=== PATIENT | female | born 1990 | race Caucasian/White ===

== ENCOUNTER 2017-02-11 19:43 | Outpatient (CLI) | payer OTHER ==
[~2017-02-11] VITALS: Ht 162.6 cm; Wt 90.7 kg
[2017-02-11 20:19] VITALS: BP 109/64; PULSE 90; RESP 18
[2017-02-11 20:22] LABS: ADD UMIC YES; URINE BILIRUBIN (Dip) NEGATIVE (NEGATIVE); URINE BLOOD (Dip) NEGATIVE (NEGATIVE); URINE COLOR LT. YELLOW (YELLOW); URINE GLUCOSE (Dip) NEGATIVE (NEGATIVE); URINE KETONES (Dip) NEGATIVE (NEGATIVE); URINE LEUKOCYTE ESTERASE (Dip) 3+ (NEGATIVE); URINE NITRITE (Dip) NEGATIVE (NEGATIVE); URINE TOTAL PROTEIN (Dip) NEGATIVE (NEGATIVE); URINE UROBILINOGEN (Dip) 0.2 E.U./dL (0.1-1.0)
[2017-02-11] MEDS ORDERED: PYRI60TA PO (20:27)
[2017-02-11] MEDS ORDERED: PRENAT PO (20:27)
[2017-02-11 20:46] LABS: BACTERIA,URINE FEW; SQUAMOUS EPITHELIAL CELL,UR MODERATE; URINE RBCS 0-2 /HPF (0)
--- NOTE | 2017-02-11 21:39 | RADRPT ---
PROCEDURE: US OB. CLINICAL INDICATION: Clinical concern for spontaneous rupture of membranes TECHNIQUE: Pelvic ultrasound performed for biophysical profile. COMPARISON: 01/23/2017 FINDINGS: Single intrauterine gestation present with heart rate at 132 beats per minute. Presentation is ceph alic. Placenta is anterior, grade II. Biophysical profile score is 8/8 (breathing=2, movement=2, t one =2, fluid volume=2). Amniotic fluid volume is within normal limits, with RENETTA = 11.9 cm. RPTAT:HJJR IMPRESSION: 1. Biophysical profile score 8/8. 2. Amniotic fluid index is normal estimated at 11.9 cm, previously 15.3 cm on the study of 7. Physician Mulu Date Time Electronically viewed and signed by Physician Mulu on 02/11/2017 21:38 /
--- NOTE | 2017-02-11 22:31 | TRIAGE ---
OB Triage Datetime Report Generated by CPN: 02/11/2017 22:31 Datetime: 02/11/2017 22:25 Stage of : OB Triage Datetime: 02/11/2017 21:41 Monitor Mode: External US FHR Baseline Changes: No Baseline Change Variability: Moderate 6-25 bpm Accelerations: 15X15 Comments: EFM removed Datetime: 02/11/2017 20:50 Labor Evaluation Frequency: 2-8 Monitor Mode: External Duration (sec)2399: 30-40sec Quality: Mild Pattern: Normal: <= 5 Contractions in 10 Minutes Resting Tone [place]: Relaxed Heart Rate FHR Baseline Rate: 130 Monitor Mode: External US FHR Baseline Changes: No Baseline Change Variability: Moderate 6-25 bpm Accelerations: 15X15 Decelerations: None Category: Category I Pain Assessment Pain Scale: 0 Pain Presence: None/Denies Pain Type: N/A Vaginal Exam Dilatation (cms): 0.5 Effacement (%): 50 Station: -3 Exam By: E Nikolay Amniotic Fluid Amount: None Vaginal Bleeding: None Pool: Negative Nitrazine: Negative Cervix, Consistency: Soft Cervix, Position: Posterior Datetime: 02/11/2017 20:00 Stage of : OB Triage Maternal Assessment Level of Consciousness: Fully Conscious Headache: Denies Blurred Vision: No Respiratory Effort: Unlabored Nausea/Vomiting: Denies RUQ Epigastric Pain: Denies Facial Edema: None Labor Evaluation Frequency: placed Monitor Mode: External Resting Tone [place]: Relaxed Monitor Mode: External US Comments: [id number] Datetime: 02/11/2017 19:45 Time of Arrival: 02/11/2017 19:38 EGA: 38.2 Arrived By: Ambulatory Arrived From: Home Chief Complaint: w/ c/o gush fluid at 1550 and first cramo at 1930. Denies hx problems this p regnancy. States hx myesthenia gravis since 10yrs old Movement: Present Contractions: Occasional Time Contractions Began: 02/11/2017 19:30 Rupture of Membranes: Unsure Vaginal Bleeding: None Vaginal Discharge: Present Recent Sexual Intercouse: Yes Abdominal Trauma: Not Applicable Patient Complaints: Cramping Time Provider Notified: 02/11/2017 20:55 Provider Notified: Dr Courtney Initial Plan: EFM, SVBrina, BPP, ROM+
--- NOTE | 2017-02-11 22:48 | QN ---
Documentation Comment OB Triage- Laborist Pt is a 26yo at 38+2 presenting with c/o gush of fluid this afternoon. Pt reports normal FM and denies VB. Pt does reports feeling an abdominal cramp at 1930 which resolved shortly thereafter. VS 98.2 109/64 90 18 FHT: Baseline 120s, mod tasha, +accels, no decels [place]: irregular UCs Gen: well appearing, NAD SVE: FT/50/-3 PROCEDURE: US OB. CLINICAL INDICATION: Clinical concern for spontaneous rupture of membranes TECHNIQUE: Pelvic ultrasound performed for biophysical profile. COMPARISON: 01/23/2017 FINDINGS: Single intrauterine gestation present with heart rate at 132 beats per minute. Presentation is cephalic. Placenta is anterior, grade II. Biophysical profile score is 8/8 (breathing=2, movement=2, tone =2, fluid volume=2). Amniotic fluid volume is within normal limits, with RENETTA = 11.9 cm. RPTAT:NOLANR IMPRESSION: 1. Biophysical profile score 8/8. 2. Amniotic fluid index is normal estimated at 11.9 cm, previously 15.3 cm on the study of 01/23/2017. Assessment 1)No e/o ROM 2)Reassuring FWB w/reactive NST 3)No e/o labor Plan Given negative ROM plus and nitrazine in the setting of normal RENETTA, reassurance provided to pt that ROM is unlikely at this time. Pt given strict return precautions for continued feeling of leaking/ROM, labor and FKC. F/up with Dr. Courtney as scheduled on 02/14/17. Questions answered to patient's satisfaction. UMU VIZCARRA MD February 11, 2017 22:48
== END 2017-02-11 22:25 | disposition home or self-care (01) ==
LOC: OBT 19:43 → L-D 19:43 → OBT 22:25
PROVIDERS: ATTEND Obstetrics & Gynecology
DX: O26.893 Other specified pregnancy related conditions, third trimester (principal); R10.9 Unspecified abdominal pain; Z3A.38 38 weeks gestation of pregnancy
CPT/HCPCS: 76818; 81001; 81003; 84112; G0463

== ENCOUNTER 2017-02-23 08:00 | Inpatient (IN) | payer OTHER ==
[~2017-02-23] VITALS: Ht 162.6 cm; Wt 92.7 kg
[~2017-02-23 08:00] MED LIST: PRENAT PO; PYRI60TA PO
[2017-02-23 09:29] VITALS: Ht 162.6 cm; Wt 92.7 kg
[2017-02-23 09:30] VITALS: BP 111/64; PULSE 95; RESP 18
[2017-02-23 09:47] LABS: ADD SCAN DIFF NO
[2017-02-23 09:49] LABS: BASOPHILS % 0.3 % (0.0-2.0); EOSINOPHILS % 0.3 % (0.0-7.0); HEMATOCRIT 28.3 % (37.0-47.0); HEMOGLOBIN 8.8 g/dl (12.0-16.0); LYMPHOCYTES # 1.4 10^3/ul (0.8-2.9); LYMPHOCYTES % 21.4 % (15.0-51.0); MEAN CORPUSCULAR HEMOGLOBIN 25.9 pg (29.0-33.0); MEAN CORPUSCULAR HGB CONC 31.1 g/dl (32.0-37.0); MEAN CORPUSCULAR VOLUME 83.2 fl (82.0-101.0); MEAN PLATELET VOLUME 10.2 fl (7.4-10.4); MONOCYTE # 0.4 10^3/ul (0.3-0.9); MONOCYTES % 6.6 % (0.0-11.0); NEUTROPHIL # 4.6 10^3/ul (1.6-7.5); NEUTROPHILS % 70.3 % (39.0-77.0); NUCLEATED RED BLOOD CELLS% 0.5 /100WBC (0.0-0.0); PLATELET COUNT 209 10^3/UL (140-415); RED CELL DISTRIBUTION WIDTH 15.7 % (11.5-14.5); WHITE BLOOD COUNT 6.5 10^3/ul (4.8-10.8)
[2017-02-23 09:59] LABS: INR 1.01; PROTIME 13.3 Sec (12.2-14.2)
[2017-02-23 10:00] LABS: PARTIAL THROMBOPLASTIN TIME 26.2 Sec (25.0-35.0)
[2017-02-23] MEDS ORDERED: AMPICILLIN 2 GM/NS (PMX) 100 ML IV ONE (10:00)
[2017-02-23] MEDS ORDERED: MISOPROSTOL 200 MCG TAB PR PRN (10:00)
[2017-02-23] MEDS ORDERED: LIDOCAINE 1% (MPF) 30 ML INJ INJ PRN (10:00)
[2017-02-23] MEDS ORDERED: IBUPROFEN 600 MG TAB PO PRN (10:00)
[2017-02-23] MEDS ORDERED: LACTATED RINGER'S 1,000 ML IV PRN (10:00)
[2017-02-23] MEDS ORDERED: METHYLERGONOVINE 0.2 MG INJ IM PRN (10:00)
[2017-02-23] MEDS ORDERED: OXYTOCIN 30 UNITS/LR 500 ML IV PRN (10:00)
[2017-02-23] MEDS ORDERED: BUTORPHANOL 2 MG INJ IV PRN (10:00)
[2017-02-23] MEDS ORDERED: CARBOPROST 250 MCG INJ IM PRN (10:00)
[2017-02-23] MEDS ORDERED: OXYTOCIN 30 UNITS/LR 500 ML IV SCH (10:30)
[2017-02-23] MEDS: LACTATED RINGER'S 1,000 ML IV SCH ×3 (10:47→21:38)
[2017-02-23] MEDS: AMPICILLIN 1 GM/NS (PMX) 50 ML IV SCH ×3 (13:53→21:37)
[2017-02-23] MEDS ORDERED: FENTAnyl 2MCG/ML-ROPIV 0.2% 100 ML ONE (20:06)
[2017-02-23] MEDS ORDERED: FENTAnyl 2MCG/ML-ROPIV 0.2% 100 ML BAG EPI SCH (21:00)
[2017-02-23] MEDS ORDERED: HYDROmorphONE 1 MG/ML SYG IV PRN ×2 (21:00)
[2017-02-23] MEDS ORDERED: PROCHLORPERAZINE 10 MG INJ IV PRN (21:00)
[2017-02-23] MEDS ORDERED: NALOXONE (0.4 MG/ML) INJ IV PRN (21:00)
[2017-02-23] MEDS ORDERED: KETOROLAC 30 MG INJ IV PRN (21:00)
[2017-02-23] MEDS ORDERED: ONDANSETRON 4 MG INJ IV PRN (21:00)
[2017-02-23] MEDS ORDERED: DIPHENHYDRAMINE 50 MG INJ IV PRN (21:00)
[2017-02-24] MEDS: LACTATED RINGER'S 1,000 ML IV SCH (01:10)
[2017-02-24] MEDS: AMPICILLIN 1 GM/NS (PMX) 50 ML IV SCH (01:44)
[2017-02-24] MEDS: OXYTOCIN 30 UNITS/LR 500 ML IV SCH ×2 (04:25→05:10)
[2017-02-24] MEDS ORDERED: LACTATED RINGER'S 1,000 ML IV* SCH ×2 (04:44→07:33)
--- NOTE | 2017-02-24 04:59 | HP ---
Date/Time of Note Date/Time of Note DATE: 02/24/17 TIME: 04:51 OB - History Hx of Present Free Text/Dictation 26y.o admitted for induction of labor for postdate known to have myasthenia gravis on pyridostigmine bromide 120mg daily prn , diagnosed at age of 10 pitocin was chosen to be used for induction antepartum test biwkly since 34 week GBS pos Estimated Due Date: February 23, 2017 : 2 Para: 1 Spontaneous : 0 Therapeutic : 0 Care: Good Care Ultrasounds: Normal mid trimester US Obstetrical Complications: None Medical Complications: Other (myasthenia gravis) Past Family/Social History * Past Medical, Surgical, Family and Obstetric Histories reviewed from chart. Blood Type: B+ Rubella: immune RPR/VDRL: Positive GBS Status: Negative HBsAG: Negative OB Admission Exam Vital Signs Vital Signs Vital Signs Date Time Temp Pulse Resp B/P Pulse Ox O2 Delivery O2 Flow Rate FiO2 02/23/17 09:30 98.9 95 18 111/64 Room Air Physical Exam HEENT: WNL Heart: Rhythm Normal Lungs: Clear, Equal Abdomen: WNL Extremities: Normal Reflexes: Normal Cervical Dilatation: 2cm Effacement: 50% Station: -3 Membranes: Intact Amniotic Fluid: Unevaluable Heart Rate: 140's Accelerations: Accelerations Present Decelerations: No Decelerations Varibility: Moderate Contractions on Admission: >10 Minutes Apart Intensity: Mild Last 72 hours Lab Results CBC & BMP 02/23/17 09:15 OB Assessment/Plan Reason for admission: induction of labor Other Assessment: IUP 40w myasthenia gravis Plan: Induction Induction Method: per Pitocin Protocol BERTHA COFFMAN MD February 24, 2017 04:59
[2017-02-24] MEDS ORDERED: METHYLERGONOVINE 0.2 MG INJ IM PRN ×2 (05:00→08:00)
[2017-02-24] MEDS ORDERED: MISOPROSTOL 200 MCG TAB PR PRN ×2 (05:00→08:00)
[2017-02-24] MEDS ORDERED: OXYTOCIN 30 UNITS/LR 500 ML IV PRN ×2 (05:00→08:00)
[2017-02-24] MEDS ORDERED: CARBOPROST 250 MCG INJ IM PRN ×2 (05:00→08:00)
--- NOTE | 2017-02-24 05:01 | LDN ---
Date/Time of Note Date/Time of Note DATE: 02/24/17 TIME: 04:59 Delivery Summary normal vaginal delivery Weeks of Gestation 40w1d Placenta Delivered: Spontaneously Meconium: none Episiotomy: No Perineal laceration: 1 Laceration repair: 000ch gut Anesthesia type: Epidural Sponge & Needle done & correct: Yes All needle counts correct: Yes Any foreign bodies felt in the: No Problems: Delivery Information Sex Infant Sex: female Apgars 1 Minute: 9 5 Minute: 9 10 Minute: 9 Suctioning Nose & mouth suctioned at clotilde: Yes Delee suction performed: No Umbilical Cord Umbilical cord with: 3 Vessels Cord presentations: no nuchal cord Cord Blood was obtained: Yes Mother & Baby Disposition Disposition Mom & Baby to Maternity; Good: Yes Mom transferred to: Other () Baby to NICU: No BERTHA COFFMAN MD February 24, 2017 05:01
[2017-02-24 06:05] VITALS: BP 114/58; PULSE 87; RESP 18
[2017-02-24 06:35] VITALS: BP 110/59; PULSE 75; RESP 19
[2017-02-24 08:00] VITALS: BP 116/65; PULSE 76; RESP 18
[2017-02-24] MEDS ORDERED: ACETAMINOPHEN 325 MG TAB PO PRN (08:00)
[2017-02-24] MEDS ORDERED: WITCH HAZEL/GLYCERIN PAD PR PRN (08:00)
[2017-02-24] MEDS ORDERED: OXYCODONE/ASPIRIN (4.88/325) TAB PO PRN (08:00)
[2017-02-24] MEDS ORDERED: BENZOCAINE 20% 56 ML SPRAY TOP PRN (08:00)
[2017-02-24] MEDS ORDERED: ACETAMINOPHEN/CODEINE #3 TAB PO PRN (08:00)
[2017-02-24] MEDS ORDERED: LANOLIN 7 GM TUBE TOP PRN (08:00)
[2017-02-24] MEDS ORDERED: PYRIDOSTIGMINE 60 MG TAB PO SCH (09:00)
[2017-02-24] MEDS: SENNA/DOCUSATE NA (8.6MG/50MG) TAB PO SCH ×2 (09:02→21:37)
[2017-02-24] MEDS: PYRIDOSTIGMINE 60 MG TAB PO SCH (09:02)
[2017-02-24] MEDS: OXYCODONE/ASPIRIN (4.88/325) TAB PO PRN (09:06)
[2017-02-24] MEDS: IBUPROFEN 600 MG TAB PO SCH ×2 (11:45→17:24)
[2017-02-24 12:00] VITALS: BP 98/57; PULSE 57
[2017-02-24 16:00] VITALS: BP 98/64; PULSE 68; RESP 19
[2017-02-24 20:00] VITALS: BP 113/69; RESP 18
[2017-02-25 04:15] VITALS: BP 107/66; PULSE 70; RESP 18
[2017-02-25] MEDS: IBUPROFEN 600 MG TAB PO SCH ×5 (06:00→23:56)
[2017-02-25 08:30] VITALS: BP 105/62; PULSE 72; RESP 16
[2017-02-25 08:44] LABS: ADD SCAN DIFF NO
[2017-02-25 09:22] LABS: BASOPHILS % 0.3 % (0.0-2.0); EOSINOPHILS % 0.3 % (0.0-7.0); HEMATOCRIT 29.6 % (37.0-47.0); HEMOGLOBIN 8.8 g/dl (12.0-16.0); LYMPHOCYTES # 1.8 10^3/ul (0.8-2.9); LYMPHOCYTES % 20.3 % (15.0-51.0); MEAN CORPUSCULAR HEMOGLOBIN 25.1 pg (29.0-33.0); MEAN CORPUSCULAR HGB CONC 29.7 g/dl (32.0-37.0); MEAN CORPUSCULAR VOLUME 84.3 fl (82.0-101.0); MEAN PLATELET VOLUME 9.7 fl (7.4-10.4); MONOCYTE # 0.6 10^3/ul (0.3-0.9); MONOCYTES % 6.6 % (0.0-11.0); NEUTROPHIL # 6.5 10^3/ul (1.6-7.5); NEUTROPHILS % 71.7 % (39.0-77.0); PLATELET COUNT 193 10^3/UL (140-415); RED BLOOD COUNT 3.51 10^6/ul (4.20-5.40); RED CELL DISTRIBUTION WIDTH 16.1 % (11.5-14.5); WHITE BLOOD COUNT 9.1 10^3/ul (4.8-10.8)
[2017-02-25] MEDS: SENNA/DOCUSATE NA (8.6MG/50MG) TAB PO SCH ×2 (09:28→21:42)
[2017-02-25] MEDS: PYRIDOSTIGMINE 60 MG TAB PO SCH (09:28)
[2017-02-25 15:45] VITALS: BP 109/81; PULSE 73; RESP 16
--- NOTE | 2017-02-25 18:13 | PN ---
Date/Time of Note Date/Time of Note DATE: 02/25/17 TIME: 18:10 OB Subjective Subjective Subjective no c/o OB Objective Objective Objective vss afebile fundus firm lochia min ext neg for tenderness OB Assessment/Plan Other Assessment: stable s/p vaginal delivery Other plan: d/s home in am BERTHA COFFMAN MD February 25, 2017 18:13
[2017-02-25 19:40] VITALS: BP 112/63; PULSE 74; RESP 18
[2017-02-26 03:40] VITALS: BP 118/83; PULSE 69; RESP 19
[2017-02-26] MEDS: IBUPROFEN 600 MG TAB PO SCH (05:41)
[2017-02-26 08:00] VITALS: BP 97/49; PULSE 69; RESP 16
[2017-02-26 08:15] VITALS: BP 106/57; PULSE 80; RESP 19
[2017-02-26] MEDS ORDERED: DIPHTH/TET/ACEL PERTUSS (ADULT) 0.5 ML VIAL IM* ONE (09:00)
[2017-02-26] MEDS: OXYCODONE/ASPIRIN (4.88/325) TAB PO PRN (09:38)
[2017-02-26] MEDS: SENNA/DOCUSATE NA (8.6MG/50MG) TAB PO SCH (09:38)
[2017-02-26] MEDS: PYRIDOSTIGMINE 60 MG TAB PO SCH (09:38)
--- NOTE | 2017-02-26 10:37 | PD.PPDC ---
HEALTHCARE ADMINISTRATIVE ASSISTANT Discharge Instruction Diagnosis Final Diagnosis: s/p normal delivery Condition Patient Condition: Good Activity/Restrictions Activity: May Shower Restrictions: No Lifting No Sexual Activity Nothing in the Vagina No [place] No Tampons, douche Follow-up Follow-up with Physician: 6, Week/Weeks Return to clinic for READING AIDE Instructions: Fever greater than 101 Chills Worsening abdominal pain Excessive Vaginal Bleeding More than 2 pads per hour Unable to tolerate diet OB Instructions: Breast Tenderness Depression Blurried Vision Headache BERTHA COFFMAN MD February 26, 2017 10:37
--- NOTE | 2017-02-26 10:39 | DS ---
Date/Time of Note Date/Time of Note DATE: 02/26/17 TIME: 10:39 Obstetrical Discharge Record Final Diagnosis Final Diagnosis: Term delivered Vaginal Delivery Obstetrical Delivery: Spontaneous Complications Induction: Yes Condition on Discharge Physical Assessment Last Vitals: vss afebrile Voiding: Yes Bowel Movement: Yes Breast: Soft, non-tender Fundus: Firm Calf Tenderness: No Patient Condition: Stable BERTHA COFFMAN MD February 26, 2017 10:39
== END 2017-02-26 14:30 | disposition home or self-care (01) | DRG 774 ==
LOC: L-D 08:53 → PP1 02-24 06:08
PROVIDERS: ADMIT Obstetrics & Gynecology; ATTEND Obstetrics & Gynecology
PROC: 3E033VJ Introduction of Other Hormone into Peripheral Vein, Percutaneous Approach (ICD-10-PCS; 2017-02-23)
PROC: 10E0XZZ Delivery of Products of Conception, External Approach (ICD-10-PCS; principal; 2017-02-24)
PROC: 0HQ9XZZ Repair Perineum Skin, External Approach (ICD-10-PCS; 2017-02-24)
DX: O48.0 Post-term pregnancy (principal); O99.42 Diseases of the circulatory system complicating childbirth; O99.354 Diseases of the nervous system complicating childbirth; G70.00 Myasthenia gravis without (acute) exacerbation; O70.0 First degree perineal laceration during delivery; Z3A.40 40 weeks gestation of pregnancy; Z37.0 Single live birth
CPT/HCPCS: 62319; 85025; 85610; 85730; 86592; 86900; 86901; 87340; 90715; J0290; J2590; J3010; J7120

== ENCOUNTER 2017-07-08 01:37 | Emergency (ER) | END 2017-07-08 03:13 | disposition home or self-care (01) | DX: Z76.0 Encounter for issue of repeat prescription (principal); G70.00 Myasthenia gravis without (acute) exacerbation | CPT/HCPCS: 36415; 80053; 81001; 84703; 85025; Z7502 ==

== ENCOUNTER 2017-07-09 14:25 | Inpatient (IN) | payer OTHER ==
[2017-07-09] VITALS (9 sets, daily range): BP systolic 92–108; BP diastolic 61–79; PULSE 55–65; RESP 16–20
[~2017-07-09] VITALS: Ht 162.6 cm; Wt 75.0 kg
[~2017-07-09 14:25] MED LIST changes: +PYRI60TA9 PO
--- NOTE | 2017-07-09 15:07 | ERA ---
ER Documentation Chief Complaint Date/Time DATE: 07/09/17 TIME: 15:04 Chief Complaint Medication administion HPI This is a 27-year-old female with a history of myasthenia gravis who was seen in the ER here Monday night and discharged in stable condition. The patient says she got worse and was seen in admission hospital the day. She says her myasthenia was getting worse she was seen at [facility] and was treated there with her usual myasthenia medications. She says she is doing much better now. She says her symptoms were eye drooping left more than right generalized fatigue and some difficulty swallowing when eating food. She has no respiratory compromise no difficulty breathing no cough no fever no headache no vomiting or diarrhea. Patient was going to be admitted there but was transferred here for insurance reasons. Patient was accepted by Dr. Jovan ARIAS All systems reviewed and are negative except as per history of present illness. Medications Home Meds Active Scripts Pyridostigmine [place]* (Pyridostigmine [place]*) 60 Mg Tablet, 60 MG PO Q4, # 100 TAB Prov:CATIE MART PA-C 07/08/17 Reported Medications Pyridostigmine [place]* (Mestinon*) 60 Mg Tablet, 120 MG PO DAILY, TAB 02/11/17 Multivit/Min/Fol Ac/Iron/Pren* ( S*) 1 Tab Tab, 1 TAB PO DAILY, TAB 02/11/17 Allergies Allergies: Coded Allergies: No Known Allergy (Unverified , 02/11/17) PMhx/Soc History of Surgery: No Hx Neurological Disorder: Yes (Myasthenia gravis) Hx Alcohol Use: No Hx Substance Use: No Hx Tobacco Use: No Smoking Status: Never smoker FmHx Family History: No coronary disease Physical Exam Vitals Vital Signs Date Time Temp Pulse Resp B/P Pulse Ox O2 Delivery O2 Flow Rate FiO2 07/09/17 14:44 98.1 59 18 120/90 99 Physical Exam Const: Well-developed, well-nourished Head: Atraumatic, normocephalic Eyes: Normal Conjunctiva, PERRLA, EOMI, normal sclera, no nystagmus ENT: Normal External Ears, Nose and Mouth, moist mucus membranes, slight left eye droop. Neck: Full range of motion. No meningismus, no lymphadenopathy. Resp: Clear to auscultation bilaterally, no wheezing, rhonchi, rales Cardio: Regular rate and rhythm, no murmurs, S1 S2 present Abd: Soft, non tender x 4, non distended. Normal bowel sounds, no guarding or rebound, no pulsitile abdominal masses or bruits Skin: No petechiae or rashes, no ecchymosis , no maculopapular rash Back: No midline or flank tenderness Ext: No cyanosis, or edema, FROM x 4, normal inspection, neurovascularly intact x 4 Neur: Awake and alert, STR 5/5 x 4, sensation intact x 4, no focal findings, cerebellum intact Psych: Normal Mood and Affect Procedures/MDM Patient had blood work sent over from [facility] do not need any at this time. I notified Dr. Aldana of the patient's arrival. We will admit her to telemetry Departure Diagnosis: Primary Impression: Myasthenia gravis Condition: Stable ALEKS PIERCE DO Jul 09, 2017 15:07
[2017-07-09] MEDS ORDERED: ACETAMINOPHEN 325 MG TAB PO PRN (15:30)
[2017-07-09] MEDS ORDERED: ONDANSETRON 4 MG INJ IV PRN (15:30)
[2017-07-09] MEDS ORDERED: IMMUNE GLOBULIN (HUMAN) 6 GM INJ IV SCH (16:30)
--- NOTE | 2017-07-09 16:38 | HP ---
Date/Time of Note Date/Time of Note DATE: 07/09/17 TIME: 16:30 Assessment/Plan VTE Prophylaxis VTE Prophylaxis Intervention: SCD's Assessment/Plan Assessment/Plan 27 yo F with known MG presents with increased fatigability concerning for MG flare. PLAN sp Pyridostigmine at OSH -start IvIg -start high dose steroids -serial NIFs -neuro consult FULL CODE critical care time: 45 minutes HPI/ROS Admit Date/Time Admit Date/Time Hx of Present Illness CC transferred from OSH for management of likely MG exacerbation HPI 27 yo F diagnosed with MG at age 10 (warranting intubation), last flare 2012 transferred from OSH for insurance reasons. Pt presented to OSH with c/o 2 weeks of increased fatigability. Infecitous w/u negative. Pt seen by OSH neuro which determined pt's presentation c/w MG flare. She was given 120 mg of pyrostigmine and transferred here for further management. NIF at OSH -25. PMH/Family/Social Past Medical History no other chronic medical problems besides MG no home meds besides her stigmine Social History Smoking Status: Never smoker Exam/Review of Systems Vital Signs Vitals Vital Signs Date Time Temp Pulse Resp B/P Pulse Ox O2 Delivery O2 Flow Rate FiO2 07/09/17 14:44 98.1 59 18 120/90 99 Exam Exam nad +easy fatigability with upward gaze no mrg lungs clear abd soft no edema no rashes 4+/5 strength bl LEs OSH studies CXR without infiltrate, UA unremarkable, urine preg neg WBCs 5.6, Cr 0.6 CORI LO MD Jul 09, 2017 16:38
[2017-07-09] MEDS ORDERED: predniSONE 20 MG TAB PO SCH (17:00)
--- NOTE | 2017-07-09 18:31 | CONS ---
Date/Time of Note Date/Time of Note DATE: 07/09/17 TIME: 18:23 Assessment/Plan Assessment/Plan Chief Complaint/Hosp Course 27 yo female with history of myasthenia gravis dx age 10 on Mestinon 120 mg TID p /w generalized weakness and concern for myasthenia crisis. Recommendations: close neuro checks check NIF/VC will reduce dose of Mestinon 90 mg TID continue to monitor concern for added Mestinon back is it may increase secretions and risk for aspiration IVIG planned would dose for 5 days continue ICU level care will follow Problems: Consultation Date/Type/Reason Admit Date/Time 07/09/17 Date of Consultation: Jul 09, 2017 Type of Consultation: Neurology Reason for Consultation Myasthenia Gravis Referring Provider: CORI LO MD Hx of Present Illness 27 year old history of Myasthenia Gravis diagnosed at age 10, has requires intubation in the past, last flare was 2012 treated with IVIG at that time. She has been on Mestinon 120 mg TID for several years, seen at an outside hospital was c/o generalized weakness and eyes feeling heavy, c/o difficulty swallowing. At OSH was given her dose of Mestinon and tx here for further work up. She denies any recent fevers chills, her children are sick at home but denies any cough, runny nose or illness at this time. NIF at outside hospital -25. weakness Social History Smoking Status: Never smoker Exam/Review of Systems Vital Signs Vitals Vital Signs Date Time Temp Pulse Resp B/P Pulse Ox O2 Delivery O2 Flow Rate FiO2 07/09/17 18:02 98.0 19 108/79 Room Air 07/09/17 17:26 78 98 Exam awake and alert oriented x3 well developed NAD no aphasia can count up to 18 CN: ZAHIRA, VFF, EOMI no nystagmus V1-3 intact sensation mild weakness in neck flexion 5-/5 otherwise strength is 5/5 throughout Reflexes 2+ throughout Medications Medications Current Medications Prednisone 60 mg 60 mg DAILY PO ; Start 07/09/17 at 17:00 Immune Globulin/ Sterile Water (Carimune Nf/ Water Sterile For Inj) 800 ml @ 0 mls/hr Q24H IV ; Start 07/09/17 at 22:00; Stop 07/12/17 at 22:01; Status UNV ANGELICA STANLEY MD Jul 09, 2017 18:31
[2017-07-09] MEDS: PYRIDOSTIGMINE 60 MG TAB PO SCH (20:58)
[2017-07-09] MEDS ORDERED: PYRIDOSTIGMINE 60 MG TAB PO SCH (21:00)
[2017-07-09] MEDS: IMMUNE GLOBULIN IV SCH (21:33)
[2017-07-09] MEDS: WATER STERILE FOR IV SCH (21:33)
[2017-07-10] VITALS (24 sets, daily range): BP systolic 80–114; BP diastolic 51–83; PULSE 54–114; RESP 14–23
[2017-07-10] MEDS: PYRIDOSTIGMINE 60 MG TAB PO SCH ×3 (08:41→21:36)
--- NOTE | 2017-07-10 09:46 | PN ---
Date/Time of Note Date/Time of Note DATE: 07/10/17 TIME: 09:37 Assessment/Plan VTE Prophylaxis VTE Prophylaxis Intervention: SCD's Lines/Catheters [facility] Peripheral IV Urinary Cath still in place: No Assessment/Plan Chief Complaint/Hosp Course Assessment/Plan: 27 yo F with known MG presents with increased fatigability concerning for MG flare. PLAN sp Pyridostigmine at OSH -start IvIg and continue pyridostigmine per Neuro rec's -received high dose steroids -serial NIFs -f/u neuro consult rec's FULL CODE critical care time: 40 minutes Problems: Subjective 24 Hr Interval Summary Free Text/Dictation Seen by neurology team yesterday, denies any chest pain or shortness of breath presently. No acute events overnight. Exam/Review of Systems Vital Signs Vitals Vital Signs Date Time Temp Pulse Resp B/P Pulse Ox O2 Delivery O2 Flow Rate FiO2 07/10/17 09:25 74 20 98 21 07/10/17 08:00 95/66 Room Air 07/10/17 07:30 98.2 Intake and Output 07/09/17 07/09/17 07/10/17 15:00 23:00 07:00 Intake Total 108 ml 1044 ml Balance 108 ml 1044 ml Medications Medications Current Medications Immune Globulin/ Sterile Water (Car[place] Nf/ Water Sterile For Inj) 800 ml @ 0 mls/hr Q24H IV Last administered on 07/09/17 21:33; Admin Dose 0 MLS/HR; Start 07/09/17 at 22:00; Stop 07/12/17 at 22:01 Pyridostigmine [place] (Mestinon) 90 mg QID PO Last administered on 07/10/17 08:41; Admin Dose 90 MG; Start 07/09/17 at 21:00 ALONDRA FAJARDO Jul 10, 2017 09:46
--- NOTE | 2017-07-10 12:10 | CONS ---
Date/Time of Note Date/Time of Note DATE: 07/10/17 TIME: 12:09 Consult Date/Type/Reason Admit Date/Time Jul 09, 2017 at 15:04 Initial Consult Date 07/09/17 Type of Consultation: Neurology Reason for Consultation Myasthenia Gravis Ordering Provider: CORI LO MD Subjective has some diplopia and and blurred vision overall weakness is improved NF -100 Objective Vital Signs Date Time Temp Pulse Resp B/P Pulse Ox O2 Delivery O2 Flow Rate FiO2 07/10/17 11:00 58 16 90/59 98 Room Air 07/10/17 09:25 21 07/10/17 07:30 98.2 Intake and Output 07/09/17 07/09/17 07/10/17 15:00 23:00 07:00 Intake Total 108 ml 1044 ml Balance 108 ml 1044 ml Exam awake and alert oriented x3 well developed NAD no aphasia can count up to 28 CN: ZAHIRA, VFF, EOMI no nystagmus V1-3 intact sensation mild weakness in neck flexion 5-/5 otherwise strength is 5/5 throughout Reflexes 2+ throughout Results/Medications Medications Current Medications Immune Globulin/ Sterile Water ([place] Nf/ Water Sterile For Inj) 800 ml @ 0 mls/hr Q24H IV Last administered on 07/09/17 21:33; Admin Dose 0 MLS/HR; Start 07/09/17 at 22:00; Stop 07/12/17 at 22:01 Pyridostigmine [place] (Mestinon) 90 mg QID PO Last administered on 07/10/17 08:41; Admin Dose 90 MG; Start 07/09/17 at 21:00 Assessment/Plan Chief Complaint/Hosp Course 27 yo female with history of myasthenia gravis dx age 10 on Mestinon 120 mg TID p /w generalized weakness and concern for myasthenia crisis. Recommendations: close neuro checks check NIF/VC resume dose of Mestinon restarted home dose 120 mg TID IVIG planned would dose for 5 days continue ICU level care will follow Problems: ANGELICA STANLEY MD Jul 10, 2017 12:10
[2017-07-10] MEDS: IMMUNE GLOBULIN IV SCH (21:39)
[2017-07-10] MEDS: WATER STERILE FOR IV SCH (21:39)
[2017-07-11] VITALS (24 sets, daily range): BP systolic 91–118; BP diastolic 53–87; PULSE 57–83; RESP 10–23
[2017-07-11 05:21] LABS: BASOPHILS % 0.6 % (0.0-2.0); EOSINOPHILS # 0.1 10^3/ul (0.0-0.5); EOSINOPHILS % 1.2 % (0.0-7.0); HEMATOCRIT 36.9 % (37.0-47.0); HEMOGLOBIN 12.1 g/dl (12.0-16.0); LYMPHOCYTES # 1.2 10^3/ul (0.8-2.9); LYMPHOCYTES % 22.6 % (15.0-51.0); MEAN CORPUSCULAR HEMOGLOBIN 27.2 pg (29.0-33.0); MEAN CORPUSCULAR HGB CONC 32.8 g/dl (32.0-37.0); MEAN CORPUSCULAR VOLUME 82.9 fl (82.0-101.0); MONOCYTE # 0.5 10^3/ul (0.3-0.9); MONOCYTES % 9.7 % (0.0-11.0); NEUTROPHIL # 3.4 10^3/ul (1.6-7.5); NEUTROPHILS % 65.5 % (39.0-77.0); PLATELET COUNT 273 10^3/UL (140-415); RED BLOOD COUNT 4.45 10^6/ul (4.20-5.40); RED CELL DISTRIBUTION WIDTH 14.6 % (11.5-14.5); WHITE BLOOD COUNT 5.2 10^3/ul (4.8-10.8)
[2017-07-11 05:48] LABS: CALCIUM 8.8 mg/dl (8.4-10.2); CREATININE 0.61 mg/dl (0.44-1.00); POTASSIUM 4.2 mmol/L (3.5-5.1)
[2017-07-11] MEDS: PYRIDOSTIGMINE 60 MG TAB PO SCH ×3 (08:44→21:10)
--- NOTE | 2017-07-11 09:27 | PN ---
Date/Time of Note Date/Time of Note DATE: 07/11/17 TIME: 09:25 Assessment/Plan VTE Prophylaxis VTE Prophylaxis Intervention: SCD's Lines/Catheters IV [facility] [place] Urinary Cath still in place: No Assessment/Plan Chief Complaint/Hosp Course Assessment/Plan: 27 yo F with known MG presents with increased fatigability concerning for MG flare. PLAN sp Pyridostigmine at OSH -Continue IvIg and continue pyridostigmine per Neuro rec's -received high dose steroids earlier as well -serial NIFs -f/u neuro consult rec's FULL CODE critical care time: 35 minutes Problems: Subjective 24 Hr Interval Summary Free Text/Dictation Patient seen by neurology team yesterday, no acute events overnight. Exam/Review of Systems Vital Signs Vitals Vital Signs Date Time Temp Pulse Resp B/P Pulse Ox O2 Delivery O2 Flow Rate FiO2 07/11/17 07:00 72 19 94/56 98 Room Air 07/11/17 04:00 98.0 07/10/17 09:25 21 Intake and Output 07/10/17 07/10/17 07/11/17 15:00 23:00 07:00 Intake Total 900 ml 648 ml 1059 ml Output Total 650 ml 350 ml 650 ml Balance 250 ml 298 ml 409 ml Exam nad, ambulating in the room +easy fatigability with upward gaze no mrg lungs clear abd soft no edema 4+/5 strength bl LEs Results Result Diagram: 07/11/17 0430 07/11/17 0450 Results 24 hrs Laboratory Tests Test 07/11/17 04:30 07/11/17 04:50 White Blood Count 5.2 # Red Blood Count 4.45 Hemoglobin 12.1 Hematocrit 36.9 L Mean Corpuscular Volume 82.9 Mean Corpuscular Hemoglobin 27.2 L Mean Corpuscular Hemoglobin Concent 32.8 Red Cell Distribution Width 14.6 H Platelet Count 273 Mean Platelet Volume 9.0 Neutrophils % 65.5 Lymphocytes % 22.6 Monocytes % 9.7 Eosinophils % 1.2 Basophils % 0.6 Nucleated Red Blood Cells % 0.0 Neutrophils # 3.4 Lymphocytes # 1.2 Monocytes # 0.5 Eosinophils # 0.1 Basophils # 0.0 Nucleated Red Blood Cells # 0.0 Sodium Level 138 Potassium Level 4.2 Chloride Level 115 H Carbon Dioxide Level 23 Anion Gap 4 L Blood Urea Nitrogen 9 Creatinine 0.61 Glucose Level 97 Calcium Level 8.8 Medications Medications Current Medications Immune Globulin/ Sterile Water (Car[place] Nf/ Water Sterile For Inj) 800 ml @ 0 mls/hr Q24H IV Last administered on 07/10/17 21:39; Admin Dose 36 MLS/HR; Start 07/09/17 at 22:00; Stop 07/12/17 at 22:01 Pyridostigmine [place] (Mestinon) 120 mg TID PO Last administered on 08:44; Admin Dose 120 MG; Start 07/10/17 at 13:00 ALONDRA FAJARDO Jul 11, 2017 09:27
--- NOTE | 2017-07-11 10:43 | CONS ---
Date/Time of Note Date/Time of Note DATE: 07/11/17 TIME: 10:42 Consult Date/Type/Reason Admit Date/Time Jul 09, 2017 at 15:04 Initial Consult Date 07/09/17 Type of Consultation: Neurology Reason for Consultation Myasthenia Gravis Exacerbation Ordering Provider: CORI LO MD Subjective improving sx mostly describes visual disturbances blurred vision Objective Vital Signs Date Time Temp Pulse Resp B/P Pulse Ox O2 Delivery O2 Flow Rate FiO2 07/11/17 10:00 83 16 97/74 100 Room Air 07/11/17 08:00 98.1 07/10/17 09:25 21 Intake and Output 07/10/17 07/10/17 07/11/17 15:00 23:00 07:00 Intake Total 900 ml 648 ml 1059 ml Output Total 650 ml 350 ml 650 ml Balance 250 ml 298 ml 409 ml Exam Exam awake and alert oriented x3 well developed NAD no aphasia can count up to 28 CN: ZAHIRA, VFF, EOMI no nystagmus V1-3 intact sensation mild weakness in neck flexion 5-/5 otherwise strength is 5/5 throughout Reflexes 2+ throughout Results/Medications Result Diagram: 07/11/17 0430 07/11/17 0450 Results 24 hrs Laboratory Tests Test 07/11/17 04:30 07/11/17 04:50 White Blood Count 5.2 # Red Blood Count 4.45 Hemoglobin 12.1 Hematocrit 36.9 L Mean Corpuscular Volume 82.9 Mean Corpuscular Hemoglobin 27.2 L Mean Corpuscular Hemoglobin Concent 32.8 Red Cell Distribution Width 14.6 H Platelet Count 273 Mean Platelet Volume 9.0 Neutrophils % 65.5 Lymphocytes % 22.6 Monocytes % 9.7 Eosinophils % 1.2 Basophils % 0.6 Nucleated Red Blood Cells % 0.0 Neutrophils # 3.4 Lymphocytes # 1.2 Monocytes # 0.5 Eosinophils # 0.1 Basophils # 0.0 Nucleated Red Blood Cells # 0.0 Sodium Level 138 Potassium Level 4.2 Chloride Level 115 H Carbon Dioxide Level 23 Anion Gap 4 L Blood Urea Nitrogen 9 Creatinine 0.61 Glucose Level 97 Calcium Level 8.8 Medications Current Medications Immune Globulin/ Sterile Water ([place] Nf/ Water Sterile For Inj) 800 ml @ 0 mls/hr Q24H IV Last administered on 07/10/17t 21:39; Admin Dose 36 MLS/HR; Start 07/09/17 at 22:00; Stop 07/12/17 at 22:01 Pyridostigmine [place] (Mestinon) 120 mg TID PO Last administered on t 08:44; Admin Dose 120 MG; Start 07/10/17 at 13:00 Assessment/Plan Chief Complaint/Hosp Course 27 yo female with history of myasthenia gravis dx age 10 on Mestinon 120 mg TID p /w generalized weakness and concern for myasthenia crisis. Recommendations: close neuro checks check NIF/VC resume dose of Mestinon restarted home dose 120 mg TID IVIG planned would dose for 5 days continue ICU level care will follow if stable tomorrow may consider tx to Tele Problems: ANGELICA STANLEY MD Jul 11, 2017 10:43
[2017-07-11] MEDS: WATER STERILE FOR IV SCH (21:38)
[2017-07-11] MEDS: IMMUNE GLOBULIN IV SCH (21:38)
[2017-07-12] VITALS (18 sets, daily range): BP systolic 91–123; BP diastolic 55–77; PULSE 61–110; RESP 16–22
[2017-07-12 05:54] LABS: EOSINOPHILS # 0.1 10^3/ul (0.0-0.5); EOSINOPHILS % 1.5 % (0.0-7.0); HEMATOCRIT 34.4 % (37.0-47.0); HEMOGLOBIN 11.2 g/dl (12.0-16.0); LYMPHOCYTES # 1.1 10^3/ul (0.8-2.9); MEAN CORPUSCULAR HEMOGLOBIN 26.9 pg (29.0-33.0); MEAN CORPUSCULAR HGB CONC 32.6 g/dl (32.0-37.0); MEAN CORPUSCULAR VOLUME 82.5 fl (82.0-101.0); MEAN PLATELET VOLUME 9.1 fl (7.4-10.4); MONOCYTE # 0.4 10^3/ul (0.3-0.9); MONOCYTES % 10.8 % (0.0-11.0); NEUTROPHIL # 2.4 10^3/ul (1.6-7.5); NEUTROPHILS % 59.2 % (39.0-77.0); PLATELET COUNT 265 10^3/UL (140-415); RED BLOOD COUNT 4.17 10^6/ul (4.20-5.40); RED CELL DISTRIBUTION WIDTH 14.8 % (11.5-14.5)
[2017-07-12 06:37] LABS: CALCIUM 8.4 mg/dl (8.4-10.2); CREATININE 0.57 mg/dl (0.44-1.00); POTASSIUM 4.1 mmol/L (3.5-5.1)
[2017-07-12] MEDS: PYRIDOSTIGMINE 60 MG TAB PO SCH ×3 (09:02→22:23)
--- NOTE | 2017-07-12 10:05 | PN ---
Date/Time of Note Date/Time of Note DATE: 07/12/17 TIME: 10:04 Assessment/Plan VTE Prophylaxis VTE Prophylaxis Intervention: SCD's Lines/Catheters [facility]from [facility] Peripheral IV Urinary Cath still in place: No Assessment/Plan Chief Complaint/Hosp Course Assessment/Plan: 27 yo F with known MG presents with increased fatigability concerning for MG flare. PLAN sp Pyridostigmine at OSH -Continue IvIg and continue pyridostigmine per Neuro rec's -received high dose steroids earlier as well -serial NIFs -f/u neuro consult rec's FULL CODE critical care time: 35 minutes Problems: Subjective 24 Hr Interval Summary Free Text/Dictation Patient denies any chest pain or shortness of breath. Seen by neurology team yesterday. Exam/Review of Systems Vital Signs Vitals Vital Signs Date Time Temp Pulse Resp B/P Pulse Ox O2 Delivery O2 Flow Rate FiO2 07/12/17 09:00 98 19 100/70 98 Room Air 07/12/17 08:00 97.9 07/11/17 10:40 21 Intake and Output 07/11/17 07/11/17 07/12/17 15:00 23:00 07:00 Intake Total 480 ml 348 ml 834 ml Output Total 750 ml 700 ml Balance 480 ml -402 ml 134 ml Exam nad, ambulating in the room +easy fatigability with upward gaze no mrg lungs clear abd soft no edema 4+/5 strength bl LEs Results Result Diagram: 07/12/17 0454 07/12/17 0454 Results 24 hrs Laboratory Tests Test 07/11/17 12:35 07/12/17 04:54 Activated Partial Thromboplast Time 29.7 White Blood Count 4.0 #L Red Blood Count 4.17 L Hemoglobin 11.2 L Hematocrit 34.4 L Mean Corpuscular Volume 82.5 Mean Corpuscular Hemoglobin 26.9 L Mean Corpuscular Hemoglobin Concent 32.6 Red Cell Distribution Width 14.8 H Platelet Count 265 Mean Platelet Volume 9.1 Neutrophils % 59.2 Lymphocytes % 27.0 Monocytes % 10.8 Eosinophils % 1.5 Basophils % 1.0 Nucleated Red Blood Cells % 0.0 Neutrophils # 2.4 Lymphocytes # 1.1 Monocytes # 0.4 Eosinophils # 0.1 Basophils # 0.0 Nucleated Red Blood Cells # 0.0 Sodium Level 138 Potassium Level 4.1 Chloride Level 112 H Carbon Dioxide Level 25 Anion Gap 5 L Blood Urea Nitrogen 7 Creatinine 0.57 Glucose Level 91 Calcium Level 8.4 Medications Medications Current Medications Immune Globulin/ Sterile Water ([place] Nf/ Water Sterile For Inj) 800 ml @ 0 mls/hr Q24H IV Last administered on 07/11/17 21:38; Admin Dose 0 MLS/HR; Start 07/09/17 at 22:00; Stop 07/12/17 at 22:01 Pyridostigmine [place] (Mestinon) 120 mg TID PO Last administered on 09:02; Admin Dose 120 MG; Start 07/10/17 at 13:00 ALONDRA FAJARDO Jul 12, 2017 10:05
--- NOTE | 2017-07-12 10:09 | CONS ---
Date/Time of Note Date/Time of Note DATE: 07/12/17 TIME: 10:07 Consult Date/Type/Reason Admit Date/Time Jul 09, 2017 at 15:04 Initial Consult Date 07/09/17 Type of Consultation: Neurology Reason for Consultation MG Ordering Provider: CORI LO MD Subjective improving sx Objective Vital Signs Date Time Temp Pulse Resp B/P Pulse Ox O2 Delivery O2 Flow Rate FiO2 07/12/17 09:00 98 19 100/70 98 Room Air 07/12/17 08:00 97.9 07/11/17 10:40 21 Intake and Output 07/11/17 07/11/17 07/12/17 15:00 23:00 07:00 Intake Total 480 ml 348 ml 834 ml Output Total 750 ml 700 ml Balance 480 ml -402 ml 134 ml Exam awake and alert oriented x3 well developed NAD no aphasia can count up to 33 CN: ZHAIRA, VFF, EOMI no nystagmus V1-3 intact sensation mild weakness in neck flexion 5-/5 otherwise strength is 5/5 throughout Reflexes 2+ throughout Results/Medications Result Diagram: 07/12/17 0454 07/12/17 0454 Results 24 hrs Laboratory Tests Test 07/11/17 12:35 07/12/17 04:54 Activated Partial Thromboplast Time 29.7 White Blood Count 4.0 #L Red Blood Count 4.17 L Hemoglobin 11.2 L Hematocrit 34.4 L Mean Corpuscular Volume 82.5 Mean Corpuscular Hemoglobin 26.9 L Mean Corpuscular Hemoglobin Concent 32.6 Red Cell Distribution Width 14.8 H Platelet Count 265 Mean Platelet Volume 9.1 Neutrophils % 59.2 Lymphocytes % 27.0 Monocytes % 10.8 Eosinophils % 1.5 Basophils % 1.0 Nucleated Red Blood Cells % 0.0 Neutrophils # 2.4 Lymphocytes # 1.1 Monocytes # 0.4 Eosinophils # 0.1 Basophils # 0.0 Nucleated Red Blood Cells # 0.0 Sodium Level 138 Potassium Level 4.1 Chloride Level 112 H Carbon Dioxide Level 25 Anion Gap 5 L Blood Urea Nitrogen 7 Creatinine 0.57 Glucose Level 91 Calcium Level 8.4 Medications Current Medications Immune Globulin/ Sterile Water ([place] Nf/ Water Sterile For Inj) 800 ml @ 0 mls/hr Q24H IV Last administered on 07/11/17t 21:38; Admin Dose 0 MLS/HR; Start 07/09/17 at 22:00; Stop 07/12/17 at 22:01 Pyridostigmine [place] (Mestinon) 120 mg TID PO Last administered on t 09:02; Admin Dose 120 MG; Start 07/10/17 at 13:00 Assessment/Plan Chief Complaint/Hosp Course 27 yo female with history of myasthenia gravis dx age 10 on Mestinon 120 mg TID p /w generalized weakness and concern for myasthenia crisis. Recommendations: close neuro checks check NIF/VC resume dose of Mestinon restarted home dose 120 mg TID IVIG planned Dose 4 today, last dose on Saturday 07/14 Problems: ANGELICA STANLEY MD Jul 12, 2017 10:09
[2017-07-12] MEDS ORDERED: ACETAMINOPHEN 325 MG TAB PO PRN (18:00)
[2017-07-12] MEDS: WATER STERILE FOR IV SCH (22:35)
[2017-07-12] MEDS: IMMUNE GLOBULIN IV SCH (22:35)
[2017-07-13] VITALS (13 sets, daily range): BP systolic 105–131; BP diastolic 61–98; PULSE 63–77; RESP 16–22
[2017-07-13 08:37] LABS: BASOPHIL # 0.1 10^3/ul (0.0-0.1); BASOPHILS % 1.2 % (0.0-2.0); EOSINOPHILS # 0.1 10^3/ul (0.0-0.5); EOSINOPHILS % 1.2 % (0.0-7.0); HEMATOCRIT 37.2 % (37.0-47.0); HEMOGLOBIN 11.9 g/dl (12.0-16.0); LYMPHOCYTES # 1.1 10^3/ul (0.8-2.9); MEAN CORPUSCULAR HEMOGLOBIN 26.6 pg (29.0-33.0); MEAN PLATELET VOLUME 8.8 fl (7.4-10.4); MONOCYTE # 0.6 10^3/ul (0.3-0.9); MONOCYTES % 13.7 % (0.0-11.0); NEUTROPHIL # 2.3 10^3/ul (1.6-7.5); NEUTROPHILS % 56.4 % (39.0-77.0); PLATELET COUNT 256 10^3/UL (140-415); RED BLOOD COUNT 4.48 10^6/ul (4.20-5.40); WHITE BLOOD COUNT 4.1 10^3/ul (4.8-10.8)
[2017-07-13 08:57] LABS: CALCIUM 8.9 mg/dl (8.4-10.2); CREATININE 0.71 mg/dl (0.44-1.00)
[2017-07-13] MEDS: PYRIDOSTIGMINE 60 MG TAB PO SCH ×3 (10:20→21:26)
--- NOTE | 2017-07-13 11:59 | CONS ---
Date/Time of Note Date/Time of Note DATE: 07/13/17 TIME: 11:57 Consult Date/Type/Reason Admit Date/Time Jul 09, 2017 at 15:04 Initial Consult Date 07/09/17 Type of Consultation: Neurology Reason for Consultation MG Ordering Provider: CORI LO MD Subjective improved symptoms overall feels back to baseline Objective Vital Signs Date Time Temp Pulse Resp B/P Pulse Ox O2 Delivery O2 Flow Rate FiO2 07/13/17 11:24 98.0 82 16 106/71 98 07/12/17 13:29 Room Air 07/11/17 10:40 21 Intake and Output 07/12/17 07/12/17 07/13/17 15:00 23:00 07:00 Intake Total 240 ml 800 ml Output Total 1 ml Balance -1 ml 240 ml 800 ml Exam awake and alert oriented x3 well developed NAD no aphasia CN: ZAHIRA, VFF, EOMI no nystagmus V1-3 intact sensation palate upgoing uvula midline scm/trap intact tongue midline Motor: 5/5 Reflexes 2+ throughout Results/Medications Result Diagram: 07/13/17 0810 07/13/17 0810 Results 24 hrs Laboratory Tests Test 07/13/17 08:10 White Blood Count 4.1 L Red Blood Count 4.48 Hemoglobin 11.9 L Hematocrit 37.2 Mean Corpuscular Volume 83.0 Mean Corpuscular Hemoglobin 26.6 L Mean Corpuscular Hemoglobin Concent 32.0 Red Cell Distribution Width 15.0 H Platelet Count 256 Mean Platelet Volume 8.8 Neutrophils % 56.4 Lymphocytes % 27.0 Monocytes % 13.7 H Eosinophils % 1.2 Basophils % 1.2 Nucleated Red Blood Cells % 0.0 Neutrophils # 2.3 Lymphocytes # 1.1 Monocytes # 0.6 Eosinophils # 0.1 Basophils # 0.1 Nucleated Red Blood Cells # 0.0 Sodium Level 142 Potassium Level 5.0 Chloride Level 116 H Carbon Dioxide Level 27 Anion Gap 4 L Blood Urea Nitrogen 6 L Creatinine 0.71 Glucose Level 90 Calcium Level 8.9 Medications Current Medications Pyridostigmine [place] (Mestinon) 120 mg TID PO Last administered on t 10:20; Admin Dose 120 MG; Start 07/10/17 at 13:00 Acetaminophen (Tylenol Tab) 650 mg Q6H PRN PO PAIN AND OR ELEVATED TEMP Last administered on 07/12/17t 18:07; Admin Dose 650 MG; Start 07/12/17 at 18:00 Assessment/Plan Chief Complaint/Hosp Course 27 yo female with history of myasthenia gravis dx age 10 on Mestinon 120 mg TID p /w generalized weakness and concern for myasthenia crisis. Recommendations: close neuro checks check NIF/VC resume dose of Mestinon restarted home dose 120 mg TID IVIG planned Dose 5 today, discharge planning she has a neurologist apt scheduled on 07/27 advised to fu and return to the ER if symptoms worsen Problems: ANGELICA STANLEY MD Jul 13, 2017 11:59
--- NOTE | 2017-07-13 13:49 | PN ---
Date/Time of Note Date/Time of Note DATE: 07/13/17 TIME: 13:48 Assessment/Plan VTE Prophylaxis VTE Prophylaxis Intervention: SCD's Lines/Catheters [facility] [place] Urinary Cath still in place: No Assessment/Plan Chief Complaint/Hosp Course Assessment/Plan: 27 yo F with known MG presents with increased fatigability concerning for MG flare. PLAN sp Pyridostigmine at OSH -Continue IvIg (fifth and last dose scheduled for tonight ) and continue pyridostigmine per Neuro rec's -received high dose steroids earlier as well -serial NIFs -f/u neuro consult rec's Problems: Subjective 24 Hr Interval Summary Free Text/Dictation Seen by neurology team, received fourth dose of IVIG earlier this morning, no acute events overnight. Exam/Review of Systems Vital Signs Vitals Vital Signs Date Time Temp Pulse Resp B/P Pulse Ox O2 Delivery O2 Flow Rate FiO2 07/13/17 12:00 75 07/13/17 11:24 98.0 16 106/71 98 07/12/17 13:29 Room Air 07/11/17 10:40 21 Intake and Output 07/12/17 07/12/17 07/13/17 15:00 23:00 07:00 Intake Total 240 ml 800 ml Output Total 1 ml Balance -1 ml 240 ml 800 ml Exam nad, ambulating in the room +easy fatigability with upward gaze no mrg lungs clear abd soft no edema 4+/5 strength bl LEs Results Result Diagram: 07/13/17 0810 07/13/17 0810 Results 24 hrs Laboratory Tests Test 07/13/17 08:10 White Blood Count 4.1 L Red Blood Count 4.48 Hemoglobin 11.9 L Hematocrit 37.2 Mean Corpuscular Volume 83.0 Mean Corpuscular Hemoglobin 26.6 L Mean Corpuscular Hemoglobin Concent 32.0 Red Cell Distribution Width 15.0 H Platelet Count 256 Mean Platelet Volume 8.8 Neutrophils % 56.4 Lymphocytes % 27.0 Monocytes % 13.7 H Eosinophils % 1.2 Basophils % 1.2 Nucleated Red Blood Cells % 0.0 Neutrophils # 2.3 Lymphocytes # 1.1 Monocytes # 0.6 Eosinophils # 0.1 Basophils # 0.1 Nucleated Red Blood Cells # 0.0 Sodium Level 142 Potassium Level 5.0 Chloride Level 116 H Carbon Dioxide Level 27 Anion Gap 4 L Blood Urea Nitrogen 6 L Creatinine 0.71 Glucose Level 90 Calcium Level 8.9 Medications Medications Current Medications Pyridostigmine [place] (Mestinon) 120 mg TID PO Last administered on 13:04; Admin Dose 120 MG; Start 07/10/17 at 13:00 Acetaminophen (Tylenol Tab) 650 mg Q6H PRN PO PAIN AND OR ELEVATED TEMP Last administered on 07/12/17 18:07; Admin Dose 650 MG; Start 07/12/17 at 18:00 ALONDRA FAJARDO Jul 13, 2017 13:49
[2017-07-13] MEDS ORDERED: WATER STERILE FOR IV SCH (22:00)
[2017-07-13] MEDS ORDERED: IMMUNE GLOBULIN IV SCH (22:00)
[2017-07-14] VITALS (7 sets, daily range): BP systolic 98–110; BP diastolic 56–63; PULSE 67–75; RESP 16–18
[2017-07-14 06:57] LABS: EOSINOPHILS # 0.1 10^3/ul (0.0-0.5); EOSINOPHILS % 1.2 % (0.0-7.0); HEMOGLOBIN 11.2 g/dl (12.0-16.0); LYMPHOCYTES % 24.3 % (15.0-51.0); MEAN CORPUSCULAR HEMOGLOBIN 26.3 pg (29.0-33.0); MEAN CORPUSCULAR VOLUME 82.2 fl (82.0-101.0); MEAN PLATELET VOLUME 9.3 fl (7.4-10.4); MONOCYTE # 0.5 10^3/ul (0.3-0.9); MONOCYTES % 12.9 % (0.0-11.0); NEUTROPHIL # 2.5 10^3/ul (1.6-7.5); NEUTROPHILS % 60.1 % (39.0-77.0); PLATELET COUNT 241 10^3/UL (140-415); RED BLOOD COUNT 4.26 10^6/ul (4.20-5.40); RED CELL DISTRIBUTION WIDTH 15.5 % (11.5-14.5); WHITE BLOOD COUNT 4.1 10^3/ul (4.8-10.8)
[2017-07-14 07:30] LABS: CALCIUM 8.5 mg/dl (8.4-10.2); CREATININE 0.54 mg/dl (0.44-1.00); POTASSIUM 4.3 mmol/L (3.5-5.1)
[2017-07-14] MEDS: PYRIDOSTIGMINE 60 MG TAB PO SCH (09:21)
--- NOTE | 2017-07-14 11:06 | PDOCDIS ---
Discharge Instructions CONDITION Patient Condition: Stable HOME CARE INSTRUCTIONS: Special Diet: Regular diet ACTIVITY: Activity Restrictions: Slowly Increase Activity FOLLOW UP/APPOINTMENTS Follow-up Plan Please take your medications as prescribed, please follow-up with your regular doctor in the clinic in the next 1 week. ALONDRA FAJARDO Jul 14, 2017 11:06
[2017-07-14] MEDS ORDERED: PYRI60TA PO (11:07)
--- NOTE | 2017-07-14 12:27 | DS ---
DATE OF ADMISSION: 07/09/2017 DATE OF DISCHARGE: 07/14/2017 HISTORY OF PRESENT ILLNESS: This is a 27-year-old female originally admitted on 07/09/2017 and being discharged home on 07/14/2017. The patient came in with history of myasthenia gravis and came in with a concern for myasthenia gravis flare. She was having increased fatigability. She was initially admitted to the intensive care unit and seen by neurology team, she was started on IVIG. She continued Mestinon at dosages that were adjusted by the neurology team. Over the course of her hospital stay her fatigue and myasthenia gravus flare symptoms improved. She was able to ambulate and tolerate a p.o. diet. She was eventually transferred out of the intensive care unit. She received a total of 5 doses of IVIG and because she is clinically improved she will be discharged home today in improved condition. She will go home with Mestinon 120 mg p.o. t.i.d. Continue to follow up with Neurology and primary care doctor team in the clinic in next 1 to 2 weeks. FINAL DIAGNOSES: 1. Myasthenia gravis flare improved with Mestinon and IVIG. 2. History of myasthenia gravis, since age 10. TIME SPENT DISCHARGING THE PATIENT: 40 minutes. Dictated By: Christophe Vuong MD /reva/[place] /Document#: [id number]
== END 2017-07-14 13:00 | disposition home or self-care (01) | DRG 57 ==
LOC: E/R 14:25 → ICU 15:04 → TEL 07-12 13:21
PROVIDERS: ADMIT Internal Medicine; ATTEND Internal Medicine
DX: G70.00 Myasthenia gravis without (acute) exacerbation (principal); H53.2 Diplopia; H53.8 Other visual disturbances; R53.1 Weakness
CPT/HCPCS: 80048; 85025; 85730; 87081; J1566

== ENCOUNTER 2018-04-29 18:45 | Emergency (ER) | END 2018-04-29 20:38 | disposition left against medical advice (07) ==

== ENCOUNTER 2018-10-11 17:26 | Emergency (ER) | payer MEDICAID, OTHER ==
[~2018-10-11] VITALS: Ht 162.6 cm; Wt 75.2 kg
[~2018-10-11 17:26] MED LIST changes: +DOXY100T20 PO; +HC30CR25 TOP; +LORA10CA PO; +MUPI22OI2 TOP; -PRENAT PO; -PYRI60TA9 PO
[2018-10-11 17:30] VITALS: Ht 162.6 cm; Wt 75.2 kg
[2018-10-11] MEDS ORDERED: HYDR-3029 PO (20:20)
[2018-10-11] MEDS ORDERED: [UNRECOGNIZED DRUG - CODE] PO (20:20)
[2018-10-11] MEDS ORDERED: PRED20TA PO (20:20)
[2018-10-11] MEDS ORDERED: MUPI15CR9 TOP (20:26)
[2018-10-11 20:30] VITALS: BP 120/77; PULSE 88; RESP 20
[2018-10-11] MEDS ORDERED: DEXAMETHASONE 10 MG/ML 1 ML INJ IM ONE (20:30)
--- NOTE | 2018-10-11 21:13 | ERD ---
ER Documentation Chief Complaint Chief Complaint rashes all over the body HPI 28-year-old female presenting with rash all over her body. Patient states is been going for the last year. She states that she was seen by her primary doctor a year ago and was given some shampoo which alleviates symptoms. The rashes on her scalp. She states is been starting to come back in May and June. 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 She has not been applying any medications to the site. Patient also has myasthenia gravis and is requesting a refill of her medications. She is undergoing changes in insurance and with medication before she is able to see her primary doctor. ROS All systems reviewed and are negative except as per history of present illness. Medications Home Meds Active Scripts Mupirocin Calcium* (Mupirocin*) 2% - 15 Gram Cream..g., 1 APPLIC TOP TID, #1 TUB Prov:DEMOND QUACH PA-C 10/11/18 Hydroxyzine Hcl* (Hydroxyzine Hcl*) 10 Mg Tablet, 10 MG PO Q6H PRN for ITCHING, #30 TAB Prov:DEMOND QUACH PA-C 10/11/18 Pyridostigmine [place]* (Mestinon*) 180 Mg Tablet.sa, 180 MG PO BID, #90 TAB.SA Prov:DEMOND QUACH PA-C 10/11/18 Prednisone* (Prednisone*) 20 Mg Tab, 40 MG PO DAILY for 4 Days, TAB Prov:DEMOND QUACH PA-C 10/11/18 Loratadine* (Claritin*) 10 Mg Capsule, 10 MG PO DAILY, #30 CAP Prov:ELIESER CLARK PA-C 04/29/18 Doxycycline Hyclate* (Doxycycline Hyclate*) 100 Mg Tablet.dr, 100 MG PO BID for 10 Days, TAB Prov:ELIESER CLARK PA-C 04/29/18 Mupirocin* (Bactroban*) 2% -22 Gram Oint...g., 1 APPLIC TOP BID for 7 Days, #1 TUB Prov:ELIESER CLARK PA-C 04/29/18 Hydrocortisone* Topical (Hydrocortisone* Topical) 2.5%-28.3 Gm Cream..g., 1 APPLIC TOP BID, #1 TUB Prov:ELIESER CLARK PA-C 04/29/18 Pyridostigmine [place]* (Mestinon*) 60 Mg Tablet, 120 MG PO TID, #90 TAB Prov:ALONDRA FAJARDO. 07/14/17 Allergies Allergies: Coded Allergies: No Known Allergy (Unverified , 07/09/17) PMhx/Soc History of Surgery: Yes (thymectomy) Anesthesia Reaction: No Hx Respiratory Disorders: No Hx Cardiac Disorders: No Hx Psychiatric Problems: No Hx Miscellaneous Medical Probl: Yes (eczema) Hx Alcohol Use: No Hx Substance Use: No Hx Tobacco Use: No Smoking Status: Never smoker FmHx Family History: No diabetes, No coronary disease, No other Physical Exam Vitals Vital Signs Date Temp Pulse Resp B/P (MAP) Pulse Ox O2 O2 Flow FiO2 Time Delivery Rate 10/11/18 98.0 88 20 120/77 100 Room Air 20:30 (91) 10/11/18 99.3 98 18 120/83 99 17:30 (95) Physical Exam GENERAL: The patient is well-appearing, well-nourished, in no acute distress HEENT: Atraumatic. Conjunctivae are pink. Pupils equal, round, and reactive to light. There is no scleral icterus. Tympanic membranes clear bilaterally. Oropharynx clear. CHEST: Clear to auscultation bilaterally. There are no rales, wheezes or rhonchi. HEART: Regular rate and rhythm. No murmurs, clicks, rubs or gallops. No S3 or S4. SKIN: Erythematous plaques noted to face and neck. No vesicles or pustules. No open cracking skin noted. Scalp is involved. Results 24 hrs Current Medications Medications Dose Sig/Derek Start Time Status Last (Trade) Ordered Route PRN Stop Time Admin Dose Reason Admin 10 mg ONCE ONCE 10/11/18 DC 10/11/18 Dexamethasone IM 20:30 20:20 (Decadron) 10/11/18 20:31 Procedures/MDM ER course: Decadron in ED. DM: 28-year-old female presenting with psoriasis findings. Patient is dischar ged with supportive medications as well as a prescription for a refill for her medication for her myasthenia gravis. Patient is told symptoms change or worsen to immediately return to the ER. Patient is discharged stricter precautions. Patient is told symptoms change or worsen to return to the ER. She is recommended to follow-up with primary care. All questions answered at discharge Departure Diagnosis: Primary Impression: Rash Condition: Stable Patient Instructions: Self-Care for Skin Rashes Referrals: COMMUNITY CLINICS YOU HAVE RECEIVED A MEDICAL SCREENING EXAM AND THE RESULTS INDICATE THAT YOU DO NOT HAVE A CONDITION THAT REQUIRES URGENT TREATMENT IN THE EMERGENCY DEPARTMENT. FURTHER EVALUATION AND TREATMENT OF YOUR CONDITION CAN WAIT UNTIL YOU ARE SEEN IN YOUR DOCTORS OFFICE WITHIN THE NEXT 1-2 DAYS. IT IS YOUR RESPONSIBILITY TO MAKE AN APPOINTMENT FOR FOLOW-UP CARE. IF YOU HAVE A PRIMARY DOCTOR --you should call your primary doctor and schedule an appointment IF YOU DO NOT HAVE A PRIMARY DOCTOR YOU CAN CALL OUR PHYSICIAN REFERRAL HOTLINE AT IF YOU CAN NOT AFFORD TO SEE A PHYSICIAN YOU CAN CHOSE FROM THE FOLLOWING [facility] [address] [facility] [address] [facility] [address] [facility] [address] [facility] [address] [facility]. [facility]. [address] Additional Instructions: FOLLOW UP WITH YOUR PRIMARY CARE PHYSICIAN TOMORROW.Return to this facility if you are not improving as expected. DEMOND QUACH PA-C Oct 11, 2018 21:13
== END 2018-10-11 20:32 | disposition home or self-care (01) ==
LOC: FTE 17:26
DX: R21 Rash and other nonspecific skin eruption (principal)
CPT/HCPCS: 96372; J1100; Z7502